=== PATIENT | female | born 1955 | race Caucasian/White ===

== ENCOUNTER → 2017-07-22 | Day surgery (SDC) | payer OTHER ==
[2017-07-14 13:37] VITALS: BMI 30.1
[~2017-07-22] MED LIST: ACETYLCHOLINE 1:100 INTRA-OCUL 20 MG/2 ML KIT ONE; BACITRACIN/POLYMYXIN OPH OINT 3.5 GM TUBE ONE; BETAXOLOL HCL 0.25% OPHTHALMIC 10 ML DROPSBTL ONE; BUPIVACAINE HCL/PF 0.5% (5MG/ML) 10 ML VIAL ONE; EPI-SHUGARCAINE (EPINEPHRINE 0.025% & LIDOCAINE-PF 0.75%) 4ML ONE; EPINEPHrine/PF 1 MG/1 ML (1:1,000) AMPULE ONE; INSULIN (NOVOLOG) ASPART 100 UNITS/ML 10ML VIAL SQ ONE; LIDOCAINE HCL 2% JELLY 10 ML CARTRIDGE ONE; LIDOCAINE HCL/PF 2% SDV 5ML VIAL ONE; NEO/POLYMYX B SULF/DEXAMETH OPHTHALMIC 5ML BOTTLE ONE; TETRACAINE 0.5% OPHTH SOLN 2 ML BOTTLE ONE
[2017-07-22] MEDS: GENTAMICIN SULFATE 0.3% OPHTHALMIC (EYE DROPS) 5ML BOTTLE ONE ×4 (07:15→07:50)
[2017-07-22] MEDS: TROPICAMIDE 1% OPHTH SOLN 15 ML BOTTLE ONE ×4 (07:15→07:50)
[2017-07-22] MEDS: PHENYLEPHRINE 2.5% OPHTH SOLN 15 ML BOTTLE ONE ×4 (07:15→07:50)
[2017-07-22] MEDS: CYCLOPENTOLATE HCL 1% OPHTH SOLN 2 ML BOTTLE ONE ×4 (07:15→07:50)
[2017-07-22] MEDS: KETOROLAC TROMETHAMINE 0.5% 5 ML BOTTLE OPTHALMIC ONE ×4 (07:15→07:50)
[2017-07-22 07:30] VITALS: BP 153/76; PULSE 94; TEMP 98.3
== END | disposition home or self-care (01) ==
LOC: FASU 06:39
PROVIDERS: ATTEND Ophthalmology
PROC: 08RJ3JZ Replacement of Right Lens with Synthetic Substitute, Percutaneous Approach (ICD-10-PCS; principal; 2017-07-22 08:00)
DX: H26.9 Unspecified cataract (principal); Z53.8 Procedure and treatment not carried out for other reasons
CPT/HCPCS: 36415; 82947; 82962

== ENCOUNTER 2017-07-29 09:06 | Day surgery (SDC) | payer OTHER ==
[2017-07-29] MEDS: TROPICAMIDE 1% OPHTH SOLN 15 ML BOTTLE ONE ×4 (09:55→10:10)
[2017-07-29] MEDS: CYCLOPENTOLATE HCL 1% OPHTH SOLN 2 ML BOTTLE ONE ×4 (09:55→10:10)
[2017-07-29] MEDS ORDERED: GENTAMICIN SULFATE 0.3% OPHTHALMIC (EYE DROPS) 5ML BOTTLE OD ONE ×4 (09:55→10:10)
[2017-07-29] MEDS: PHENYLEPHRINE 2.5% OPHTH SOLN 15 ML BOTTLE ONE ×4 (09:55→10:10)
[2017-07-29] MEDS: KETOROLAC TROMETHAMINE 0.5% 5 ML BOTTLE OPTHALMIC ONE ×4 (09:55→10:10)
[2017-07-29 10:05] VITALS: BMI 30.1
[2017-07-29] MEDS ORDERED: ACETAMINOPHEN 325 MG TABLET (FP) PO PRN (10:27)
[2017-07-29] MEDS ORDERED: Insulin (LOG) Aspart 100 UNITS/ML VIAL SQ ONE (10:31)
[2017-07-29] MEDS ORDERED: INSULIN (NOVOLOG) ASPART 100 UNITS/ML 10ML VIAL SQ ONE (10:39)
[2017-07-29] MEDS ORDERED: LIDOCAINE HCL/PF 2% SDV 5ML VIAL ONE (11:06)
[2017-07-29] MEDS ORDERED: PROPOFOL 20 ML ONE (11:07)
[2017-07-29] MEDS ORDERED: MIDAZOLAM HCL 2 MG/2 ML SINGLE DOSE VIAL ONE (11:18)
[2017-07-29 12:18] VITALS: TEMP 97.8
[2017-07-29 12:53] VITALS: BP 121/60; PULSE 88
--- NOTE | 2017-07-29 14:01 | OP ---
DATE OF OPERATION: 07/29/2017 TITLE OF PROCEDURE: Difficult planned extracapsular cataract extraction, phacoemulsification of cataract with the use of iris hooks and insertion of posterior chamber lens implant of the right eye. SURGEON: Kalin Stuart MD [employer] SURGEON: Kalin Stuart MD COMPLICATIONS: None. PREOPERATIVE DIAGNOSES: Hypermature cataract, right eye. Pupillary miosis, right eye. POSTOPERATIVE DIAGNOSES: Hypermature cataract, right eye. Pupillary miosis, right eye. FINDINGS AT PROCEDURE: After successful peribulbar block was given in the OR to the right eye, the patient was prepped and draped in the usual manner to expose the right eye. With lid speculum inserted, the microscope was brought into position over the right eye. A superior fornix-based flap was then fashioned for 12-mm, and Edna scissor and 0.12 forceps, and hemostasis achieved by wet field cautery. A limbal groove was then fashioned for 3 mm with a crescent blade and dissecting anterior into clear cornea. A 3-mm blade was used to enter the anterior chamber, and Viscoat. A of 360-degree anterior capsulotomy was performed. Leaflet removed from the eye, and it was noted that the pupil was too small. It began to close down during the procedure, and it was decided to use iris hooks; so, four were used to open the pupillary diameter to about 8 mm successfully. Phacoemulsification was then carried out successfully through completion in about 2 minutes' time, followed by irrigation and aspiration of all minimal cortical material. There was a small amount that was very adherent in the fornices which we decided to leave behind due to the risk of capsulotomy developing. The Provisc was then injected into the eye to deepen the posterior capsule. Attention was focused to the implant which was inspected and then found to be free of defects, debris, and flaws and was folded, placed in Provisc-filled cartridge, cartridge placed in the injector. The implant was then injected into the eye such that the inferior haptic was in the inferior capsular bag and superior haptic in the superior capsular bag and rotated in a horizontal position with a Sinskey hook. The Provisc was then aspirated out. We placed Miochol, Miostat, and BSS after. It should be noted that prior to the placement of the Miochol and Miostat, the 4 iris hooks were removed without complication, and the pupil began to constrict down nicely. Then, the wound had been closed with a single interrupted 2-0 Ethilon suture superiorly. The wound was inspected carefully and found to be tight and no leakage, and the pressure of the eye was normal. Conjunctival-tenon flap was reapproximated. At this point, the implant was fixated in the capsular bag, centrally located, with a round pupil, intact posterior capsule and red reflex present. Conjunctival-tenon flap was reapproximated. Topical Betoptic S and Maxitrol ophthalmic suspensions were placed, as was bacitracin and polymyxin B ophthalmic ointment. Then, the patch and shield placed on the eye after the Tegaderm strips were removed and the speculum was removed and lids were closed. The patient was then discharged from the operating room to the recovery area in good condition, having tolerated the procedure well. Urmila MARTÍNEZ/[id number]
== END 2017-07-29 12:50 | disposition home or self-care (01) ==
LOC: FASU 09:06
PROVIDERS: ATTEND Ophthalmology
PROC: 08RJ3JZ Replacement of Right Lens with Synthetic Substitute, Percutaneous Approach (ICD-10-PCS; principal; 2017-07-29 11:20)
DX: H25.21 Age-related cataract, morgagnian type, right eye (principal); H57.03 Miosis
CPT/HCPCS: 82962